=== PATIENT | female | born 1990 | race Two or more races ===

== ENCOUNTER 2019-09-29 11:24 | Emergency (ER) | payer MEDICAID, OTHER ==
[~2019-09-29] VITALS: Ht 160 cm; Wt 68.5 kg
[2019-09-29 12:05] VITALS: BP 120/63
[2019-09-29] MEDS ORDERED: ACETAMINOPHEN 325 MG TAB PO ONE (14:45)
== END 2019-09-29 14:54 | disposition home or self-care (01) ==
LOC: ER 11:27
DX: O26.891 Other specified pregnancy related conditions, first trimester (principal); R10.32 Left lower quadrant pain; Z3A.12 12 weeks gestation of pregnancy
CPT/HCPCS: 76801

== ENCOUNTER 2020-01-18 10:51 | Emergency (ER) | payer MEDICAID ==
[~2020-01-18] VITALS: Ht 157.5 cm; Wt 72.6 kg
[2020-01-18 10:58] VITALS: BP 139/76
[2020-01-18] MEDS ORDERED: PENICILLIN G BENZ 1200000 UNITS/2 ML SYRG IM ONE (11:15)
== END 2020-01-18 11:48 | disposition home or self-care (01) ==
LOC: ER 10:51
DX: O98.112 Syphilis complicating pregnancy, second trimester (principal); Z3A.28 28 weeks gestation of pregnancy
CPT/HCPCS: 96372; 99283; J0561

== ENCOUNTER 2020-01-25 15:24 | Emergency (ER) | payer MEDICAID ==
[~2020-01-25] VITALS: Ht 160 cm; Wt 73.0 kg
[2020-01-25 16:36] VITALS: BP 116/51
[2020-01-25] MEDS ORDERED: PENICILLIN G BENZ 1200000 UNITS/2 ML SYRG IM ONE (17:00)
== END 2020-01-25 17:20 | disposition home or self-care (01) ==
LOC: ER 15:24
DX: O98.113 Syphilis complicating pregnancy, third trimester (principal); Z3A.29 29 weeks gestation of pregnancy
CPT/HCPCS: 96372; 99283; J0561

== ENCOUNTER 2020-02-15 08:11 | Observation (INO) | payer MEDICAID ==
[~2020-02-15] VITALS: Ht 160 cm; Wt 73.0 kg
== END 2020-02-15 10:00 | disposition home or self-care (01) | DRG 566 ==
LOC: EDUNIT# 08:11 → LDRP 08:11
PROVIDERS: ADMIT Specialist; ATTEND Specialist
DX: O98.113 Syphilis complicating pregnancy, third trimester (principal); Z3A.29 29 weeks gestation of pregnancy
CPT/HCPCS: 76818; 81002; 99284; G0378

== ENCOUNTER 2020-02-22 09:13 | Observation (INO) | payer MEDICAID ==
[2020-02-22] MEDS ORDERED: PREN-96 PO (11:24)
== END 2020-02-22 10:42 | disposition home or self-care (01) | DRG 566 ==
LOC: LDRP 09:13
PROVIDERS: ADMIT Specialist; ATTEND Specialist
DX: O26.893 Other specified pregnancy related conditions, third trimester (principal); Z3A.33 33 weeks gestation of pregnancy
CPT/HCPCS: 76818; G0378; 59025; 81002

== ENCOUNTER 2020-03-01 14:07 | Observation (INO) | payer MEDICAID ==
[~2020-03-01 14:07] MED LIST: PREN-96 PO
== END 2020-03-01 15:30 | disposition home or self-care (01) | DRG 566 ==
LOC: LDRP 14:07
PROVIDERS: ADMIT Obstetrics & Gynecology; ATTEND Obstetrics & Gynecology
DX: O98.113 Syphilis complicating pregnancy, third trimester (principal); Z3A.34 34 weeks gestation of pregnancy
CPT/HCPCS: 76818; 81002; G0378

== ENCOUNTER 2020-03-07 08:22 | Observation (INO) | payer MEDICAID | END 2020-03-07 09:45 | disposition home or self-care (01) | DRG 861 | LOC: LDRP 08:22 | PROVIDERS: ADMIT Obstetrics & Gynecology; ATTEND Obstetrics & Gynecology | DX: Z34.83 Encounter for supervision of other normal pregnancy, third trimester (principal); Z3A.35 35 weeks gestation of pregnancy; Z98.891 History of uterine scar from previous surgery | CPT/HCPCS: 76818; 81002; G0378; 59025 ==

== ENCOUNTER 2020-03-14 08:15 | Observation (INO) | payer MEDICAID | END 2020-03-14 09:12 | disposition home or self-care (01) | DRG 566 | LOC: LDRP 08:15 | PROVIDERS: ADMIT Specialist; ATTEND Specialist | DX: O26.893 Other specified pregnancy related conditions, third trimester (principal); Z3A.36 36 weeks gestation of pregnancy | CPT/HCPCS: 76818; 81002; G0378 ==

== ENCOUNTER 2020-03-19 22:10 | Observation (INO) | payer MEDICAID | END 2020-03-20 00:52 | disposition home or self-care (01) | DRG 566 | LOC: LDRP 22:10 | PROVIDERS: ADMIT Specialist; ATTEND Specialist | DX: O62.9 Abnormality of forces of labor, unspecified (principal); M54.9 Dorsalgia, unspecified; R10.9 Unspecified abdominal pain; Z3A.37 37 weeks gestation of pregnancy | CPT/HCPCS: 59025; 76817; 76818; 81002; G0378 ==

== ENCOUNTER 2020-03-21 08:28 | Observation (INO) | payer MEDICAID | END 2020-03-21 09:20 | disposition home or self-care (01) | DRG 566 | LOC: LDRP 08:28 | PROVIDERS: ADMIT Specialist; ATTEND Specialist | DX: O36.8330 Maternal care for abnormalities of the fetal heart rate or rhythm, third trimester, not applicable or unspecified (principal); Z3A.37 37 weeks gestation of pregnancy | CPT/HCPCS: 59025; 76818; 81002; G0378 ==

== ENCOUNTER 2020-03-28 08:36 | Observation (INO) | payer MEDICAID | END 2020-03-28 09:30 | disposition home or self-care (01) | DRG 566 | LOC: LDRP 08:36 | PROVIDERS: ADMIT Obstetrics & Gynecology; ATTEND Obstetrics & Gynecology | DX: O26.893 Other specified pregnancy related conditions, third trimester (principal); N89.8 Other specified noninflammatory disorders of vagina; Z3A.38 38 weeks gestation of pregnancy | CPT/HCPCS: 59025; 76818; 81002; G0378 ==

== ENCOUNTER 2020-03-31 09:05 | Observation (INO) | payer MEDICAID | END 2020-03-31 09:35 | disposition home or self-care (01) | DRG 566 | LOC: LDRP 09:05 | PROVIDERS: ADMIT Obstetrics & Gynecology; ATTEND Obstetrics & Gynecology | DX: O98.513 Other viral diseases complicating pregnancy, third trimester (principal); Z11.59 Encounter for screening for other viral diseases; Z3A.39 39 weeks gestation of pregnancy | CPT/HCPCS: G0378; U0003 ==

== ENCOUNTER 2020-04-02 05:10 | Inpatient (IN) | payer MEDICAID ==
[2020-04-02] VITALS (11 sets, daily range): BP systolic 95–120; BP diastolic 51–73
[~2020-04-02] VITALS: Ht 160 cm; Wt 74.4 kg
[2020-04-02 06:15] LABS: Basophils # (auto) 0 10 ^3/uL (0-0.2); Basophils % (auto) 0.5 % (0.0-2.0); Eosinophils # (auto) 0.1 10 ^3/uL (0-0.8); Eosinophils % (auto) 1.5 % (0.0-7.0); Hematocrit 38.2 % (36.0-46.0); Hemoglobin 13.2 g/dL (12.2-16.2); Lymphocytes % (auto) 23.9 % (10.0-50.0); Mean Corpuscular Hemoglobin 30.2 pg (28.0-32.0); Mean Corpuscular Hgb Conc. 34.4 g/dL (32.0-36.0); Mean Corpuscular Volume 87.7 fL (80.0-100.0); Monocytes # (auto) 0.7 10 ^3/uL (0-1.3); Monocytes % (auto) 8.7 % (0.0-12.0); Neutrophils # (auto) 5.6 10 ^3/uL (1.6-8.6); Neutrophils % (auto) 65.4 % (37.0-80.0); Nucleated Red Blood Cells % 0.1 %; Platelet Count (auto) 205 10^3/uL (140-450); Red Blood Cells 4.36 10^6/uL (4.0-5.20); Red Cell Distribution Width 14.2 % (11.8-14.3); White Blood Cell 8.6 10^3/uL (4.4-10.8)
[2020-04-02 06:23] LABS: Urine Bacteria FEW /hpf (None Seen); Urine Blood Negative /uL (Negative); Urine Mucus FEW (None Seen); Urine Specific Gravity 1.026 (1.001-1.035)
[2020-04-02 06:24] LABS: Urine WBC 6 /hpf (0 - 5)
[2020-04-02 06:30] LABS: INR 0.98 (0.9-1.15); Partial Thromboplastin Time 27.9 sec (23.64-32.05)
[2020-04-02 06:35] LABS: Albumin 2.7 g/dL (3.4-5.0); Calcium 8.4 mg/dL (8.5-10.1); Potassium 3.6 mmol/L (3.5-5.1)
[2020-04-02 06:40] LABS: BUN/Creatinine Ratio 14.9; Bilirubin, Total 0.4 mg/dL (0.2-1.0); Total Protein 6.9 g/dL (6.4-8.2)
[2020-04-02] MEDS: LACTATED RINGER'S 1,000 ML IV SCH ×3 (06:49→16:21)
[2020-04-02] MEDS ORDERED: ePHEDrine SULFATE 50 MG/ML AMP ONE (08:57)
[2020-04-02] MEDS ORDERED: PHENYLEPHRINE HCL 10 MG/ML VL ONE (08:59)
[2020-04-02] MEDS ORDERED: ceFAZolin 1GM VL ONE (09:00)
[2020-04-02] MEDS ORDERED: oxyTOCIN 10 UNIT/ML 10ML VIAL ONE (09:01)
[2020-04-02] MEDS ORDERED: GLYCOPYRROLATE 0.2 MG/ML 1ML VIAL ONE ×2 (09:04→10:29)
[2020-04-02] MEDS ORDERED: NEOSTIGMINE 1 MG/ML INJ (10mg/10ML VIAL) ONE (09:04)
[2020-04-02] MEDS ORDERED: TETRACAINE 1% INJ 2 ML VIAL IJ ONE (09:39)
[2020-04-02] MEDS ORDERED: MORPHINE SULF(PF) 0.5MG/ML 10ML VIAL ONE (09:42)
[2020-04-02] MEDS ORDERED: METOCLOPRAMIDE HCL 5MG/ml INJ 2ml VIAL ONE (10:02)
[2020-04-02] MEDS ORDERED: KETAMINE HCL 10 ML ONE (10:02)
[2020-04-02] MEDS ORDERED: MIDAZOLAM HCL 1MG/1ML-2 ML VIAL ONE (10:03)
[2020-04-02] MEDS ORDERED: LACT. RINGERS/OXYTOCIN 20UNITS 1,000 ML IV SCH (10:50)
[2020-04-02] MEDS ORDERED: ceFAZolin 1GM/50ML 50 ML IV SCH (11:00)
[2020-04-02] MEDS ORDERED: HYDROmorphone HCL 2 MG/ML VL IV PRN (11:00)
[2020-04-02] MEDS ORDERED: diphenhdrAMINE HCL 50 MG/1 ML VL IV PRN (11:00)
[2020-04-02] MEDS ORDERED: KETOROLAC TROMETH 30 MG/ML 1ML VIAL IV PRN (11:00)
[2020-04-02] MEDS ORDERED: NALOXONE HCL 0.4 MG/ML VIAL IV PRN ×2 (11:00)
[2020-04-02] MEDS ORDERED: MORPHINE SULFATE 4 MG/ML SYR/VIAL IV PRN (11:00)
[2020-04-02] MEDS ORDERED: ONDANSETRON HCL 4 MG/2 ML VIAL IV PRN ×3 (11:00)
[2020-04-02] MEDS ORDERED: ACETAMINOPHEN IV 1000 MG/100ML (10MG/ML) IV PRN ×2 (12:15→13:30)
[2020-04-02] MEDS: ceFAZolin 1GM/50ML 50 ML IV SCH (17:49)
[2020-04-02 20:18] LABS: Basophils # (auto) 0 10 ^3/uL (0-0.2); Basophils % (auto) 0.2 % (0.0-2.0); Eosinophils # (auto) 0.1 10 ^3/uL (0-0.8); Eosinophils % (auto) 0.6 % (0.0-7.0); Hematocrit 36.6 % (36.0-46.0); Hemoglobin 12.3 g/dL (12.2-16.2); Lymphocytes # (auto) 1.8 10 ^3/uL (0.4-5.4); Lymphocytes % (auto) 17.7 % (10.0-50.0); Mean Corpuscular Hemoglobin 29.5 pg (28.0-32.0); Mean Corpuscular Hgb Conc. 33.7 g/dL (32.0-36.0); Mean Corpuscular Volume 87.6 fL (80.0-100.0); Monocytes # (auto) 0.8 10 ^3/uL (0-1.3); Monocytes % (auto) 7.4 % (0.0-12.0); Neutrophils # (auto) 7.6 10 ^3/uL (1.6-8.6); Neutrophils % (auto) 74.1 % (37.0-80.0); Nucleated Red Blood Cells % 0.1 %; Platelet Count (auto) 194 10^3/uL (140-450); Red Blood Cells 4.18 10^6/uL (4.0-5.20); Red Cell Distribution Width 14.1 % (11.8-14.3); White Blood Cell 10.3 10^3/uL (4.4-10.8)
[2020-04-03] MEDS: ceFAZolin 1GM/50ML 50 ML IV SCH ×2 (01:29→10:02)
[2020-04-03] MEDS ORDERED: ACETAMINOPHEN IV 1000 MG/100ML (10MG/ML) IV PRN (02:00)
[2020-04-03 03:00] VITALS: BP 118/67
[2020-04-03 05:44] LABS: Basophils # (auto) 0 10 ^3/uL (0-0.2); Basophils % (auto) 0.1 % (0.0-2.0); Eosinophils # (auto) 0.1 10 ^3/uL (0-0.8); Eosinophils % (auto) 1.1 % (0.0-7.0); Hematocrit 34.6 % (36.0-46.0); Lymphocytes # (auto) 1.4 10 ^3/uL (0.4-5.4); Lymphocytes % (auto) 15.6 % (10.0-50.0); Mean Corpuscular Hemoglobin 30.1 pg (28.0-32.0); Mean Corpuscular Hgb Conc. 34.7 g/dL (32.0-36.0); Mean Corpuscular Volume 86.7 fL (80.0-100.0); Monocytes # (auto) 0.9 10 ^3/uL (0-1.3); Monocytes % (auto) 9.5 % (0.0-12.0); Neutrophils # (auto) 6.7 10 ^3/uL (1.6-8.6); Neutrophils % (auto) 73.7 % (37.0-80.0); Nucleated Red Blood Cells % 0.1 %; Platelet Count (auto) 191 10^3/uL (140-450); Red Blood Cells 3.99 10^6/uL (4.0-5.20); Red Cell Distribution Width 14.5 % (11.8-14.3); White Blood Cell 9.1 10^3/uL (4.4-10.8)
[2020-04-03] MEDS: LACTATED RINGER'S 1,000 ML IV SCH ×2 (06:54→13:32)
[2020-04-03] MEDS ORDERED: HYDROcodone-ACET 5/325MG TAB PO PRN (07:00)
[2020-04-03 07:15] VITALS: BP 111/69
[2020-04-03] MEDS: HYDROcodone-ACET 5/325MG TAB PO PRN ×2 (07:17→17:12)
[2020-04-03] MEDS: DOCUSATE SOD 100 MG CAP PO SCH ×2 (10:02→21:24)
[2020-04-03] MEDS: IBUPROFEN 800 MG TAB PO PRN ×2 (10:02→21:24)
[2020-04-03 11:03] VITALS: BP 129/71
[2020-04-03] MEDS: SIMETHICONE 80 MG CHEWABLE TABLET PO PRN (14:49)
[2020-04-03 15:15] VITALS: BP 100/56
[2020-04-03 19:00] VITALS: BP 119/81
[2020-04-03 23:00] VITALS: BP 111/71
[2020-04-04 03:00] VITALS: BP 121/75
[2020-04-04 07:16] VITALS: BP 98/72
[2020-04-04] MEDS: HYDROcodone-ACET 5/325MG TAB PO PRN (07:27)
[2020-04-04] MEDS: SIMETHICONE 80 MG CHEWABLE TABLET PO PRN ×3 (07:27→21:15)
[2020-04-04] MEDS: IBUPROFEN 800 MG TAB PO PRN ×2 (09:34→21:15)
[2020-04-04] MEDS: DOCUSATE SOD 100 MG CAP PO SCH ×2 (09:34→21:15)
[2020-04-04 11:27] VITALS: BP 116/75
[2020-04-04 15:00] VITALS: BP 110/63
[2020-04-04 19:00] VITALS: BP 117/76
[2020-04-04] MEDS ORDERED: BISACODYL 10 MG RECT SUPP PR PRN (20:00)
[2020-04-04 22:46] VITALS: BP 100/63
[2020-04-05 02:51] VITALS: BP 102/54
[2020-04-05 07:11] VITALS: BP 110/71
[2020-04-05] MEDS: IBUPROFEN 800 MG TAB PO PRN (09:09)
[2020-04-05] MEDS: DOCUSATE SOD 100 MG CAP PO SCH (09:09)
[2020-04-11 01:51] LABS: RPR Non Reactive (Non Reactive)
== END 2020-04-05 10:28 | disposition home or self-care (01) | DRG 540 ==
LOC: LDRP 05:10
PROVIDERS: ADMIT Obstetrics & Gynecology; ATTEND Obstetrics & Gynecology
PROC: 0UL70CZ Occlusion of Bilateral Fallopian Tubes with Extraluminal Device, Open Approach (ICD-10-PCS; 2020-04-02)
PROC: 10D00Z1 Extraction of Products of Conception, Low, Open Approach (ICD-10-PCS; principal; 2020-04-02 09:33)
DX: O69.81X0 Labor and delivery complicated by cord around neck, without compression, not applicable or unspecified (principal); K21.9 Gastro-esophageal reflux disease without esophagitis; O34.211 Maternal care for low transverse scar from previous cesarean delivery; Z37.0 Single live birth; Z3A.39 39 weeks gestation of pregnancy; Z30.2 Encounter for sterilization; O99.62 Diseases of the digestive system complicating childbirth
CPT/HCPCS: 36415; 51702; 59025; 80053; 81001; 84112; 85025; 85610; 85730; 86592; 86850; 86900; 86901; 96361; 96366; G0378; J0131; J0690; J2250; J2590